=== PATIENT | male | born 1965 | race Native Hawaiian/Other Pacific Islander ===

== ENCOUNTER 2022-01-26 14:27 | Emergency (ER) | payer OTHER ==
[~2022-01-26] VITALS: Ht 170.2 cm; Wt 71.7 kg
[2022-01-26 14:35] VITALS: BP 136/70; TEMP 97.8
== END 2022-01-26 16:48 | disposition home or self-care (01) ==
LOC: ED 14:27
DX: Z43.1 Encounter for attention to gastrostomy (principal); Z48.01 Encounter for change or removal of surgical wound dressing
CPT/HCPCS: 99283